=== PATIENT | male | born 1945 | race Caucasian/White ===

== ENCOUNTER 2023-03-11 00:40 | Emergency (ER) | payer BC, OTHER ==
[2023-03-11 00:53] VITALS: PULSE 95; RESP 18; BMI 39.9
[2023-03-11 01:11] VITALS: BP 188/92
== END 2023-03-11 01:12 | disposition home or self-care (01) ==
LOC: FER 00:40
PROC: 093K7ZZ Control Bleeding in Nasal Mucosa and Soft Tissue, Via Natural or Artificial Opening (ICD-10-PCS; principal; 2023-03-11)
DX: R04.0 Epistaxis (principal)
CPT/HCPCS: 99282-25

== ENCOUNTER 2023-03-11 22:03 | Emergency (ER) | payer OTHER ==
[2023-03-11 22:08] VITALS: RESP 18
[2023-03-11 22:16] VITALS: BP 173/95; PULSE 93; TEMP 97.9; BMI 39.9
== END 2023-03-11 22:59 | disposition home or self-care (01) ==
LOC: FER 22:03
DX: R04.0 Epistaxis (principal)
CPT/HCPCS: 99282-25